=== PATIENT | female | born 1995 | race Caucasian/White ===

== ENCOUNTER 2017-04-11 03:21 | Observation (INO) | payer BC, OTHER ==
[2017-04-11 03:57] LABS: #Eosinphils 0.2 thou/uL (0.0-0.7); #Lymphocytes 3.6 thou/uL (1.20-3.40); #Monocytes 0.5 thou/uL (0.11-0.59); #Neutrophils 5.8 thou/uL (1.40-6.50); %Basophils 0.2 % (0.0-1.0); %Eosinophils 2.1 % (0.0-10.0); %Lymphocytes 35.6 % (21.0-51.0); %Monocytes 4.7 % (0.0-10.0); Hematocrit 39.2 % (36.0-47.0); Mean Platelet Volume 6.7 fL (7.4-10.4); Red Blood Cell (RBC) Count 4.62 mill/uL (4.20-5.40)
[2017-04-11 04:04] LABS: PTT 29.4 SEC (22.9-36.1); Prothrombin Time 12.9 SEC (12.0-14.7)
[2017-04-11 04:14] LABS: Acetaminophen Less than 6.0 mcg/mL (10.0-30.0); Salicylate Less than 8.0 mg/dL (15.0-30.0)
[2017-04-11 04:19] LABS: Troponin I 0.064 ng/mL (< 0.028)
[2017-04-11] MEDS ORDERED: Nitroglycerin 2% Ointment 1 INCH/1 GM Packet ONE (04:29)
[2017-04-11 04:32] LABS: Bilirubin Negative (Negative); Blood, Urine Small (Negative); Glucose, Urine (Dipstick) Negative (Negative); Ketone, Urine Negative (Negative); Nitrite Negative (Negative); Protein, Urine (Dipstick) Negative (Neg-Trace); Urobilinogen 0.2 mg/dL (0.2-1.0)
[2017-04-11 04:34] LABS: Bacteria/HPF 1+ HPF (None Seen); Squamous Epithelial 0-3 HPF (0-3)
[2017-04-11 04:41] LABS: Amphetamine Not Detected (NotDetected); Methadone Not Detected (NotDetected); Methamphetamine Not Detected (NotDetected)
[2017-04-11 04:49] LABS: Sperm/HPF 1+ HPF (None Seen)
[2017-04-11 04:50] LABS: ALT (SGPT) 33 U/L (8-55); AST (SGOT) 26 U/L (5-34); Alkaline Phosphatase 94 U/L (40-150); Anion Gap 10 mmol/L (10-20); BUN (Urea Nitrogen) 8 mg/dL (7.0-18.7); Bilirubin, Total 0.8 mg/dL (0.2-1.2); CK (CPK) 154 U/L (29-168); Calc. Creatinine Clearance 0 mL/min (70-130); Calcium 9.4 mg/dL (7.8-10.44); Carbon Dioxide 28 mmol/L (22-29); Chloride 102 mmol/L (98-107); Estimated GFR-MDRD Greater than 90; Globulin 3.6 g/dL (2.4-3.5); Lipase 22 U/L (8-78); Protein, Total 7.7 g/dL (6.0-8.3)
[2017-04-11 04:50] LABS: Hyaline Casts/LPF NONE SEEN LPF (0-3 Hyaline)
[2017-04-11] MEDS ORDERED: Acetaminophen 500 MG TAB ONE (05:25)
[2017-04-11] MEDS ORDERED: Acetaminophen 325 MG TAB PO PRN (07:20)
[2017-04-11] MEDS ORDERED: [UNRECOGNIZED DRUG - REMARK] PO SCH (07:30)
[2017-04-11 07:32] LABS: Troponin I 0.074 ng/mL (< 0.028)
[2017-04-11 08:18] VITALS: BMI 48.4
[2017-04-11] MEDS ORDERED: Nitroglycerin 0.4 MG TAB (25 Tab Bottle) ONE (08:19)
[2017-04-11] MEDS ORDERED: Nitroglycerin 0.4 MG TAB (25 Tab Bottle) SL PRN (08:23)
[2017-04-11] MEDS ORDERED: HYDROcodone/Acetaminophen 5/325 mg Tablet PO PRN (08:52)
[2017-04-11] MEDS ORDERED: Milk Of Magnesia 30 ML UDCUP PO PRN (08:52)
[2017-04-11] MEDS ORDERED: Ondansetron ODT 4 MG TAB PO PRN (08:52)
--- NOTE | 2017-04-11 08:58 | RAD ---
PORTABLE CHEST 1 VIEW: DATE: 04/11/17. TIME: 2:40 a.m. HISTORY: Syncope and chest pain. FINDINGS: The heart size is normal. No focal areas of consolidation, pneumothorax, xu pulmonary edema, or pleural effusions are seen. IMPRESSION: No radiographic evidence of acute cardiopulmonary process. POS: [facility]
[2017-04-11] MEDS: Famotidine 20 MG TAB PO SCH ×2 (10:31→21:12)
[2017-04-11] MEDS: Sodium Chloride 0.9% 1,000 ML IV SCH (10:31)
--- NOTE | 2017-04-11 11:34 | MRI ---
MRI BRAIN WITHOUT CONTRAST: Date: 04/11/17 HISTORY: Syncope, elevated prolactin. FINDINGS: No restricted diffusion is seen. No infarct, hemorrhage, midline shift, or abnormal extra-axial flui d collection seen. The ventricular size is normal and the basilar cisterns are patent. There is muco emani disease in the paranasal sinuses. IMPRESSION: 1. No evidence of acute intracranial process. 2. Given the history of elevated prolactin level, recommend a contrast enhanced MRI of the brain us ing the pituitary protocol. POS: [facility]
--- NOTE | 2017-04-11 11:37 | ULT ---
BILATERAL CAROTID DUPLEX ULTRASOUND: DATE: 04/11/17 HISTORY: Syncope. TECHNIQUE: Wesley scale ultrasound with color flow and spectral Doppler imaging of the extracranial carotid arter y systems performed bilaterally. FINDINGS: No significant wall thickening or plaque formation is noted on either side. The peak systolic velocity in the right ICA measures 91 cm/second with a systolic ratio of 1.10. The peak systolic velocity in the left ICA measures 194 cm/second with a systolic ratio of 1.15. Flow in both vertebral arteries remains antegrade. IMPRESSION: No evidence of hemodynamically significant stenosis. POS: [facility]
[2017-04-11 11:48] LABS: Troponin I 0.073 ng/mL (< 0.028)
[2017-04-11] MEDS ORDERED: Nitroglycerin 2% Ointment 1 INCH/1 GM Packet TOP SCH (14:00)
--- NOTE | 2017-04-11 15:17 | HP ---
DATE OF ADMISSION: 04/11/2017 CHIEF COMPLAINT: Syncope. HISTORY OF PRESENT ILLNESS: Ms. Cronin is a 21-year-old white female with a history of chronic recu rrent chest pain, she has had cardiac workups with a heart catheterization back in 03/2014 that was unremarkable and normal echocardiogram. She has had periodic chest pain since that time. She was s ubsequently admitted to an outside hospital at [facility] in [place] after having a syncopal e pisode. She was there at [place] for about 3 days with several telemedicine consults and echocardiogram, whi ch we have no results of any of that. She subsequently decided to leave or be discharged from there yesterday and come to the emergency department here for admission for further workup and to see her Cardiology team. After discharge yesterday, she went home and around 1:30 this morning, had another episode where she syncopized. When she awoke, she was confused for about an hour to an hour and a half and did not e dre know her kids' names. There is no reported jerking or bowel or bladder incontinence or tongue b iting, however, with initial syncopal episode that landed in the hospital in [place], she did have s ome apparent jerking motions that the mom is not sure which location on her body. The patient is currently somnolent and confused and unable to give any other reliable history. PAST MEDICAL HISTORY: 1. Chest pain with workup in 03/2014. 2. Cardiomyopathy per admission in [place], though I have no records. 3. Severe obesity. 4. Crohn disease. 5. Hypothyroidism. PAST SURGICAL HISTORY: 1. Cholecystectomy. 2. Colonoscopy remotely. 3. Tonsillectomy. 4. Breast biopsy. 5. PTCA without intervention in 03/2014. 6. Echo on 04/11/2015 with EF 55% to 60%, trace mitral and tricuspid regurg. No diastolic dysfunct ion. 7. Appendectomy in 03/2015. HOME MEDICATIONS: Levothyroxine 150 mg daily. She was given some p.o. and IV pain medicines at the hospital recently. ALLERGIES: AZITHROMYCIN causes a diffuse swelling and she had a history of getting ZOFRAN intraveno usly and getting her arm was edematous and red, she has had it since then intravenously without any problems. FAMILY HISTORY: Significant for CHF and blood clots. Father had early coronary artery disease and required LVAD. SOCIAL HISTORY: Reportedly negative for habits x3. She is and has 3 children at home that are all small. Her mom is with her at the bedside at present with one of her daughters. REVIEW OF SYSTEMS: Not obtainable due to altered mental status. PHYSICAL EXAMINATION: VITAL SIGNS: Temperature 97.2, pulse 80, blood pressure 128/67, respiratory 18, 99% on room air. GENERAL: She is awake, alert, in no distress. She is oriented to person, but when asked any questi ons, looks at her mom to answer. HEENT: Normocephalic, atraumatic. Pupils are equal, reactive bilaterally. Mucous membranes are mo ist. There is no visible lesions, no thrush. LUNGS: Clear. There are no wheezes, no rales, no rhonchi. She has good air movement. CARDIOVASCULAR: Normal S1 and S2. No S3 or S4. I cannot hear murmurs. Heart sounds are distant d ue to body habitus. ABDOMEN: Soft, severely obese. She is nontender. There is no rebound, rigidity, or guarding. She has good bowel sounds present in all 4 quadrants. EXTREMITIES: Show no cyanosis, no clubbing, no edema. 2+ bounding peripheral pulses in the dorsali s pedis and posterior tibial arteries. SKIN: Warm, moist, well perfused. She has no rashes, no lesions. MUSCULOSKELETAL: Normal to inspection. She has no inflamed joints. NEUROLOGIC: Difficult to assess. She follows simple commands. When I asked to squeeze onto my fin gers with both of her hands, there seems like not full effort. She has good strength in her bilater al lower extremities, what I would considered 5/5. She has 4/5 strength with effort on the right an d 3/5 on the left hand. Reflexes are normal. When she was talking to her mother or me, speech ines daniel appeared normal. Cranial nerves II through XII appeared to be grossly intact. LABORATORY DATA: CMP is normal, creatinine 0.73, potassium 4.4. CBC showed a white count of 10, he moglobin 12.6, hematocrit of 39.2, platelets 395,000. Urinalysis shows 4-6 white cells, 1+ bacteria , 1+ sperm. Prolactin level was elevated at 36.43. Qualitative test was negative. INR 1 .0. Urinary drug screen was positive for opioids. CK was normal at 154. Troponin I was minimally elevated at 0.064 and MB was normal at 1.6. IMAGING: Chest x-ray showed possible cardiomegaly with an increase in the interstitial markings, bu t no edema. ASSESSMENT AND PLAN: 1. Syncopal episode: Etiology not clear cardiogenic versus neurologic. We will monitor her with n euro checks q.2 hours for 8 hours, then q.4 hours. We will monitor her on telemetry. 2. Chest pain: The patient had extensive cardiac workup in the past. The Cardiology was consulted by the ER already. We will get serial cardiac biomarkers and placed on cardioprotective medication s with nitro paste, beta josé antonio, continuous oxygen. EKG during chest pain early this morning was n ormal. 3. Elevated prolactin: Certainly could be indicative of a seizure. We will get MRI of the brain a nd if normal, may get a repeat with contrast on the pituitary protocol. No focal neurologic deficit at this time that I can definitely assess. We will continue to do neuro checks on her. 4. Severe obesity. 5. Crohn disease, currently without flare. 6. Neurology evaluated. I think we may benefit from getting an EEG.
[2017-04-11] MEDS: HYDROcodone/Acetaminophen 10/325 mg Tablet PO PRN (17:50)
--- NOTE | 2017-04-11 20:13 | CON ---
DATE OF CONSULTATION: 04/11/2017 REASON FOR CONSULTATION: Syncope. HISTORY OF PRESENT ILLNESS: Ms. Cronin is a very pleasant 21-year-old white female who comes to the hospital for a syncopal spell. She was at home, sitting, talking with her boyfriend and her boyfri end states that she suddenly just stared out and slumped back on the bed. She was out for about 10 minutes and then when she woke up, she was confused for about 2-3 hours. Her mom tells me that she did not recognize her kids. She just had a child 8 months ago. She did not know who anyone was, sh e did not know what was going on, did not know where she was, she was very confused. She states she remembers talking to her boyfriend and then waking up on the way to the hospital. She denies any c hest pain, tightness or pressure. No shortness of breath. She has had episodes of chest pain in e past 3 years ago, she had an abnormal stresses and she had a heart catheterization that was comple tely normal. She is followed by Dr. Mehta in the clinic. PAST MEDICAL HISTORY: 1. Heart catheterization with normal coronaries. 2. Obesity. 3. Crohn's disease. 4. Hypothyroidism. 5. Concern for cardiomyopathy on a recent admission in [facility]. PAST SURGICAL HISTORY: 1. Cholecystectomy. 2. Colonoscopy remotely. 3. Tonsillectomy. 4. Breast biopsy. 5. Heart catheterization, but no angioplasty, normal coronaries. 6. Normal LV function on echo last in 2014. 7. Appendectomy. OUTPATIENT MEDICATIONS: Levothyroxine 150 mcg a day. ALLERGIES: 1. AZITHROMYCIN. 2. ZOFRAN. FAMILY HISTORY: Heart failure and blood clots in the family. Father had early coronary artery dise ase and of heart complications required an LVAD at some point. SOCIAL HISTORY: No alcohol, tobacco or drugs. She has got 3 kids and she also has maternal hyperte nsion. REVIEW OF SYSTEMS: A 12-point review of systems is normal unless stated in the history of present i llness. PHYSICAL EXAMINATION: VITAL SIGNS: Temperature 97.6, pulse 90, respiratory rate 16, satting 99% on room air. Blood press ure 120/69. GENERAL: Awake, alert, oriented x3, in no distress. HEENT: Normocephalic, atraumatic. NECK: Supple. LUNGS: Clear. CARDIOVASCULAR: S1, S2, no S3 or S4, no murmurs or rubs. ABDOMEN: Soft, positive bowel sounds. EXTREMITIES: No edema. SKIN: Warm and dry. LABORATORY DATA: Laboratory work was reviewed. CBC is unremarkable. Coags were normal. D-dimer w as normal. Chemistry was unremarkable. Her troponin was 0.06, 0.07, 0.07, 0.07. Her prolactin lev el was high at 36. TSH was normal. Lipase was normal. BNP was 46, negative test. UA wa s positive for small amount of blood, 4-6 white cells, and 1+ bacteria and 1+ sperm. Toxicology pos itive for urine opiates, otherwise negative. EKG was reviewed. MRI of the brain was normal. I would recommend to pituitary protocol MRI given the elevated prolact in. Chest x-ray was unremarkable. Carotid ultrasound showed no evidence of hemodynamically signifi cant stenosis. Telemetry has been unremarkable so far. ASSESSMENT AND PLAN: 1. Syncope: Episode is not typical for cardiac syncope given she was confused almost for 2 hours a fterwards. This would go more with a neurological event like a seizure type event. She also had he adaches at the time of the episode, she had this happen twice, the last time she was walking to the door and passed out right before she was having a bad headache to this could also be just a very com plicated migraines. At this point, I think she may need some monitoring as an outpatient. She will probably require a 30-day monitor. We will get an echocardiogram and depending on this result she should be able to be discharged home, but this is normal. 2. Elevated troponins: She has had this level of elevated troponins in the past and she had normal coronaries. I doubt that she will require any further coronary evaluation at this time. No stress testing of any sort. We will see what echocardiogram says before any other decisions are made as f ar as risk stratification. Thank you for letting us to participate in the care of your patient. Dr. Mehta, her primary car diologist, will follow in the morning.
[2017-04-11] MEDS: Metoprolol Tartrate 25 MG TAB PO SCH (21:11)
--- NOTE | 2017-04-11 21:39 | CON ---
DATE OF CONSULTATION: 04/11/2017 CONSULTING PHYSICIAN: Hospitalist Service. IMPRESSION: Migraine related syncope versus nonconvulsive seizure. PLAN: 1. Monitor for further events. 2. Followup. Ms. Cronin is a 21-year-old white female with a past history of migraine headaches. She reports souleymane t these have been occurring sporadically for the last 2 years. She was sitting in her bed when she started experiencing some headache that had a throbbing quality and some nausea, everything went leah k and she apparently collapsed to the side from a sitting position. There was no convulsive activit y reported. She has not clearly certain as to the duration. She was unconscious, but her boyfriend told her that it was 5 minutes. She awoke on the bed and no longer had a headache of significance, but she did have some continued nausea. They got her to a standing position and walked to the car. She was taken to the emergency room where she was admitted and further workup was undertaken. Her MRI of the brain was normal. Her carotid ultrasound was clear bilaterally. Her lab work was all u nremarkable. Vital signs have been stable since admission. She has been afebrile. She is without any particular complaints at this point. She denies any past history of seizures or syncope. PAST MEDICAL HISTORY: Migraines, obesity. ALLERGIES: AZITHROMYCIN. SOCIAL HISTORY: Unremarkable. FAMILY HISTORY: Noncontributory. REVIEW OF SYSTEMS: Reportedly, there was some suggestion of right arm weakness prior to admission. PHYSICAL EXAMINATION: GENERAL: She is a morbidly obese young woman, lying in bed, sleeping at 4:00 in the afternoon. HEENT: Unremarkable. NEUROLOGIC: She is alert and appropriate. Her speech is fluent and clear. Cranial nerves are inta ct. Her exam is nonfocal. No abnormal movements were seen. All of her studies were reviewed. SUMMARY: This is a 21-year-old woman with past history of migraines, who had a syncopal event while sitting in bed, is more than likely migraine related, but if the duration was actually in the range of 5 minutes, a nonconvulsive seizure be a consideration given that she has a normal MRI, I would n ot start her on anticonvulsants at this point. I have advised her to follow up in the office.
[2017-04-12 01:55] LABS: Troponin I 0.059 ng/mL (< 0.028)
[2017-04-12] MEDS: Sodium Chloride 0.9% 1,000 ML IV SCH (02:02)
[2017-04-12 04:55] LABS: #Basophils 0.1 thou/uL (0.0-0.2); #Eosinphils 0.2 thou/uL (0.0-0.7); #Lymphocytes 3.2 thou/uL (1.20-3.40); #Monocytes 0.4 thou/uL (0.11-0.59); #Neutrophils 2.9 thou/uL (1.40-6.50); %Basophils 0.8 % (0.0-1.0); %Eosinophils 2.5 % (0.0-10.0); %Lymphocytes 48.2 % (21.0-51.0); %Monocytes 5.4 % (0.0-10.0); Mean Platelet Volume 6.9 fL (7.4-10.4); Red Blood Cell (RBC) Count 3.97 mill/uL (4.20-5.40); White Blood Cell (WBC) Count 6.7 thou/uL (4.8-10.8)
[2017-04-12 05:20] LABS: Anion Gap 9 mmol/L (10-20); BUN (Urea Nitrogen) 10 mg/dL (7.0-18.7); Calc. Creatinine Clearance 303 mL/min (70-130); Calcium 8.8 mg/dL (7.8-10.44); Carbon Dioxide 28 mmol/L (22-29); Chloride 107 mmol/L (98-107); Estimated GFR-MDRD Greater than 90
[2017-04-12] MEDS ORDERED: Levothyroxine Sodium 150 MCG TAB PO SCH (06:00)
[2017-04-12 08:22] VITALS: BP 126/59; TEMP 97.5
[2017-04-12] MEDS: Famotidine 20 MG TAB PO SCH (08:42)
[2017-04-12] MEDS: HYDROcodone/Acetaminophen 10/325 mg Tablet PO PRN (08:43)
[2017-04-12] MEDS: Metoprolol Tartrate 25 MG TAB PO SCH (08:43)
--- NOTE | 2017-04-12 16:04 | DIS ---
DATE OF ADMISSION: 04/11/2017 DATE OF DISCHARGE: 04/12/2017 DISCHARGE DIAGNOSES: 1. Syncopal episode, possibly neurogenic. 2. Noncardiac chest pain. 3. Severe obesity. 4. Hypothyroidism. 5. Crohn's disease. CONSULTATIONS: 1. Dr. Boo Parra with Cardiology on 04/11/2017. 2. Dr. Guillermo Segura with Neurology on 04/11/2017. PROCEDURES: Echocardiogram 04/11/2017 that was normal. Carotid Dopplers ultrasound of bilateral on 04/11/2017 that was normal. Brain MRI that was normal. HISTORY AND PHYSICAL: Ms. 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 She has been admitted at [facility] in [place] for 3 days prior to her admission here, she had been worked up for a syncopal episode and reportedly had not go t any good results and so decided to be discharged from there and follow up in [place] in the next day . She got home that night, around 1:00 a.m. on the day of admission, she had another syncopal episode. When she came to after a few seconds, she was confused and lethargic for about an hour and a half . She subsequently was brought to the emergency department for evaluation and is being worked up fo r complaints of chest pain. HOSPITAL COURSE: The patient was admitted from the ER to the floor, and I saw her when I came in th at morning. She was having acute chest pain with normal EKG and unresponsive to nitro. She was bennie y confused, unable to give any history and most history was taken from her mother. Per the mother, the patient was confused about an hour and a half, had no bowel or bladder incontinence or tongue bi ting, however, with almost every episode, she had a period of confusion or lethargy afterwards. She underwent MRI that was unremarkable. Carotid ultrasound was unremarkable. An echocardiogram was n ormal. Cardiology was consulted and saw her and felt this was likely not cardiac in nature and she has seen Dr. Mehta in the past for chest pain with negative workup including stress testing and heart catheterization. She was seen by Dr. Segura that afternoon, who felt that this was possibly even seizure activity or migraine variant and recommended no antiepileptics and to follow up in the office. The patient remained stable overnight as we waited for the echocardiogram report to return. Overnight 04/11/2017 to 04/12/2017, she remained stable, and this morning she was back to her normal self. She has no headache, no chest pain and had no spells. She was stable for discharge home wit h outpatient followup. PHYSICAL EXAMINATION: The patient was seen and examined on the day of discharge. DISCHARGE PLAN: Disposition was discussed with the patient face to face at the bedside. DISCHARGE MEDICATIONS: Levothyroxine 150 mcg p.o. daily. FOLLOWUP APPOINTMENTS 1. Dr. Segura in 1-2 weeks per his clinic. 2. Primary care physician within 1 week. DISCHARGE CONDITION: Good. DISPOSITION: To be discharged home via private vehicle.
--- NOTE | 2017-04-13 14:38 | EKG ---
Test Reason : Blood Pressure : / mmHG Vent. Rate : 087 BPM Atrial Rate : 087 BPM P-R Int : 150 ms QRS Dur : 112 ms QT Int : 396 ms P-R-T Axes : 011 002 -11 degrees QTc Int : 476 ms Normal sinus rhythm Minimal voltage criteria for LVH, may be normal variant T wave abnormality, consider inferior ischemia Prolonged QT Abnormal ECG Confirmed by MADDI WINSTON, WOODY ([id number]), assistant film editor SIDNEY ARANA ([id number]) on 04/13/2017 2:37:54 PM Referred By: Confirmed By:WOODY LINDA MD
== END 2017-04-12 13:24 | disposition home or self-care (01) ==
LOC: ERS 03:21 → ERHOLD 04:31 → 2SW 06:34
PROVIDERS: ADMIT Family Medicine; ATTEND Family Medicine
DX: R55 Syncope and collapse (principal); R07.89 Other chest pain; E03.9 Hypothyroidism, unspecified; I42.9 Cardiomyopathy, unspecified; K50.90 Crohn's disease, unspecified, without complications; E66.01 Morbid (severe) obesity due to excess calories; Z68.42 Body mass index [BMI] 45.0-49.9, adult; Z88.1 Allergy status to other antibiotic agents; Z79.899 Other long term (current) drug therapy; Z90.49 Acquired absence of other specified parts of digestive tract; Z90.89 Acquired absence of other organs; Z98.890 Other specified postprocedural states; Z82.49 Family history of ischemic heart disease and other diseases of the circulatory system
CPT/HCPCS: 36415; 70551; 71010; 80048; 80053; 80306; 80307; 81003; 81015; 82550; 82553; 83690; 83880; 84146; 84443; 84484; 84703; 85025; 85379; 85610; 85730; 87086; 93005; 93010; 93306; 93880; 96360; 96361; A4216; G0378

== ENCOUNTER 2017-04-14 23:54 | Emergency (ER) | payer BC ==
[2017-04-15 01:10] LABS: #Basophils 0.1 thou/uL (0.0-0.2); #Eosinphils 0.2 thou/uL (0.0-0.7); #Lymphocytes 3.4 thou/uL (1.20-3.40); #Monocytes 0.5 thou/uL (0.11-0.59); #Neutrophils 5.2 thou/uL (1.40-6.50); %Basophils 0.8 % (0.0-1.0); %Eosinophils 1.7 % (0.0-10.0); %Lymphocytes 36.1 % (21.0-51.0); %Monocytes 5.7 % (0.0-10.0); Hematocrit 35.6 % (36.0-47.0); Mean Platelet Volume 6.5 fL (7.4-10.4); Red Blood Cell (RBC) Count 4.18 mill/uL (4.20-5.40); White Blood Cell (WBC) Count 9.4 thou/uL (4.8-10.8)
[2017-04-15 01:33] LABS: ALT (SGPT) 21 U/L (8-55); AST (SGOT) 14 U/L (5-34); Alkaline Phosphatase 87 U/L (40-150); Anion Gap 12 mmol/L (10-20); BUN (Urea Nitrogen) 12 mg/dL (7.0-18.7); Bilirubin, Total 0.5 mg/dL (0.2-1.2); Calc. Creatinine Clearance 0 mL/min (70-130); Calcium 9.4 mg/dL (7.8-10.44); Carbon Dioxide 27 mmol/L (22-29); Chloride 104 mmol/L (98-107); Estimated GFR-MDRD Greater than 90; Lipase 32 U/L (8-78)
[2017-04-15] MEDS ORDERED: Acetaminophen 500 MG TAB ONE (03:59)
[2017-04-15] MEDS ORDERED: Acetaminophen 650 MG/20.3 ML UDCUP ONE (04:13)
[2017-04-15 04:28] LABS: Troponin I 0.079 ng/mL (< 0.028)
--- NOTE | 2017-04-15 08:15 | CT ---
PRELIMINARY REPORT/[facility]/EMERGENCY AFTER HOURS PROCEDURE: EXAM: CT Head Without Intravenous Contrast EXAM DATE/TIME: 04/15/2017 1:49 AM CLINICAL HISTORY: 21 years old, female; Signs and symptoms; Other: Seizure; Patient HX: S/P seizure TECHNIQUE: Axial computed tomography images of the head/brain without intravenous contrast. COMPARISON: No relevant prior studies available. FINDINGS: Brain: No evidence of acute intracranial hemorrhage, extraxial fluid or midline shift. No evidence o f acute large vessel infarction. Ventricles: Unremarkable. No ventriculomegaly. Bones/joints: Unremarkable. No acute fracture. Soft tissues: Unremarkable. Sinuses: Complete fluid opacification left maxillary sinus. Mastoid air cells: Unremarkable as visualized. No mastoid effusion. IMPRESSION: 1. No evidence of acute intracranial hemorrhage, extraxial fluid or midline shift. 2. No evidence of acute large vessel infarction. 3. Complete fluid opacification left maxillary sinus. Thank you for allowing us to participate in the care of your patient. Dictated and Authenticated by: Vero Marcos MD 04/15/2017 2:25 AM Central Time ([place] \T\ [place]) FINAL REPORT EMERGENT AFTER HOURS NONCONTRAST CT HEAD 04/15/2017 HISTORY: Three syncopal episodes within the last hour. The patient also reports nausea and headache. COMPARISON: MRI of brain on 04/11/2017 IMPRESSION: 1. No acute intracranial abnormalities demonstrated. 2. Complete opacification of the left maxillary antrum also noted on the prior MRI examination. The re is also minimal mucosal thickening visualized in the right maxillary antrum. 3. Findings are in agreement with the preliminary report by Michael. POS: [facility]
--- NOTE | 2017-04-15 08:47 | RAD ---
PORTABLE CHEST: HISTORY: Chest pain. COMPARISON: 04/11/2017 FINDINGS: The lungs appear clear. No confluent infiltrate. The heart and mediastinum are unremarkable. No i nterval change seen. IMPRESSION: No acute interval change apparent. POS: [facility]
== END 2017-04-15 04:24 | disposition left against medical advice (07) ==
LOC: ERS 23:54
DX: R55 Syncope and collapse (principal); R07.9 Chest pain, unspecified; E03.9 Hypothyroidism, unspecified; J45.909 Unspecified asthma, uncomplicated; Z79.899 Other long term (current) drug therapy
CPT/HCPCS: 36416; 70450; 71010; 80053; 82553; 83690; 83735; 84146; 84484; 84703; 85025; 93005; 94760; 96360; 96361